=== PATIENT | female | born 2000 | race Caucasian/White ===

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

== ENCOUNTER 2024-04-27 21:57 | Emergency (ER) | payer OTHER ==
[~2024-04-27] VITALS: Ht 160 cm; Wt 73.0 kg
[2024-04-27 22:49] VITALS: BP 109/77; RESP 18; TEMP 98.3; O2SAT 100
[2024-04-27 22:50] VITALS: PULSE 87; O2SAT 99
== END 2024-04-28 01:55 | disposition left against medical advice (07) ==
LOC: ER 21:57
DX: R11.2 Nausea with vomiting, unspecified (principal); Z53.21 Procedure and treatment not carried out due to patient leaving prior to being seen by health care provider